=== PATIENT | male | born 1970 | race Caucasian/White ===

== ENCOUNTER 2018-07-07 23:04 | Emergency (ER) | payer OTHER ==
[2018-07-07 23:32] VITALS: BP 142/102; PULSE 89; RESP 20; TEMP 98.8
[2018-07-08] MEDS ORDERED: ACET/COD 300 MG/30 MG STARTER PACK 6 TAB BTL PO STA (00:01)
--- NOTE | 2018-07-08 00:04 | ED ---
Fall HPI - General Source: patient Mode of arrival: ambulatory <Lena Perkins - Last Filed: 07/08/18 02:35> <Myra Perez - Last Filed: 07/09/18 03:12> - General Chief Complaint: Fall Stated Complaint: Fall, L arm injury - History of Present Illness Initial Comments: 4-year-old male with past medical history of hypertension presenting today for chief complaint of fall and right wrist pain. Patient states last night around 1:00 AM he was outside when he slipped on ice, he denies any head injury, neck or back pain. He states he fell on his right side and extended his left wrist. Patient states he immediately noticed left wrist pain. When patient did not subside and patient had increased pain with range of motion of the left wrist he presented for evaluation for possible fracture. She admits to soft tissue swelling over the left wrist. Patient is right-hand dominant. Patient denies any numbness, tingling or loss of sensation. Patient denies any pallor of the extremity. Patient denies any previous left wrist injuries or drug ALLERGIES. Remainder of ROS negative, patient denies any recent fever, chills, shortness of breath, chest pain, back pain, abdominal pain, nausea or vomiting, numbness or tingling, dysuria or hematuria, constipation or diarrhea, headaches or visual changes, or any other complaints. (Lena Perkins) - Related Data Home Medications Medication Instructions Recorded Confirmed Losartan/Hydrochlorothiazide 1 tab PO DAILY 07/07/18 07/07/18 [Losartan-Hctz 100-12.5 mg Tab] amLODIPine [Norvasc] 10 mg PO DAILY 07/07/18 07/07/18 Allergies Allergy/AdvReac Type Severity Reaction Status Date / Time No Known Allergies Allergy Verified 07/07/18 23:32 Review of Systems ROS Other: All systems not noted in ROS Statement are negative. <Lena Perkins - Last Filed: 07/08/18 02:35> ROS Other: All systems not noted in ROS Statement are negative. <Myra Perez - Last Filed: 07/09/18 03:12> ROS Statement: Those systems with pertinent positive or pertinent negative responses have been documented in the HPI. Past Medical History Past Medical History: Hypertension History of Any Multi-Drug Resistant Organisms: None Reported Past Surgical History: Orthopedic Surgery Additional Past Surgical History / Comment(s): red knee and red ankle Past Psychological History: No Psychological Hx Reported Smoking Status: Current every day smoker Past Alcohol Use History: None Reported Past Drug Use History: None Reported <Lena Perkins L - Last Filed: 07/08/18 02:35> General Exam Limitations: no limitations <Lena Perkins L - Last Filed: 07/08/18 02:35> <Myra Perez P - Last Filed: 07/09/18 03:12> - General Exam Comments Initial Comments: General: The patient is awake and alert, in no distress, and does not appear acutely ill. Eye: +3 mm pupils are equal, round and reactive to light, extra-ocular movements are intact. No nystagmus. There is normal conjunctiva bilaterally. No signs of icterus. Ears, nose, mouth and throat: There are moist mucous membranes and no oral lesions. Cardiovascular: There is a regular rate and rhythm. No murmur, rub or gallop is appreciated. Respiratory: Lungs are clear to auscultation, respirations are non-labored, breath sounds are equal. No wheezes, stridor, rales, or rhonchi. Gastrointestinal: Soft, non-distended, non-tender abdomen without masses or organomegaly noted. There is no rebound or guarding present. No CVA tenderness. Bowel sounds are unremarkable. Musculoskeletal: Upon inspection of the wrist bilaterally, there is soft tissue swelling diffusely over the carpals of the left wrist. No abrasions or lacerations. Patient refuses to fully range at the left wrist secondary to pain. Patient is able to slightly flex and extend . Normal ROM, no tenderness at the elbows and shoulders bilaterally of the upper extremities equal and comparison patient has full range of motion of the digits of the hands equal bilaterally.. Strength 5/5 of unaffected joints of the upper extremities however patient refuses to fully strength test at the left wrist secondary to pain. Sensation intact both proximal distal to injury equal comparison with unaffected side. Radial pulses equal bilaterally 2+. Patient is able to make the okay fingers crossed and extend thumb slightly. Median, radial and ulnar nerves appear intact. Capillary refill less than 2 seconds. Compartments are soft and compressible Neurological: A&O x 3. CN II-XII intact, There are no obvious motor or sensory deficits. Coordination appears grossly intact. Speech is normal. Skin: Skin is warm and dry and no rashes or lesions are noted. Psychiatric: Cooperative, appropriate mood & affect, normal judgment. (Lena Perkins) Vital Signs 07/07/18 23:29 Temperature 98.8 F Pulse Rate 89 Respiratory 20 Rate Blood Pressure 142/102 O2 Sat by Pulse 100 Oximetry Medical Decision Making <Lena Perkins - Last Filed: 07/08/18 02:35> <Myra Perez - Last Filed: 07/09/18 03:12> - Medical Decision Making 48-year-old male with history of fall and left wrist pain. Patient neurovascularly intact. X-rays reviewed by myself as well as radiology revealed a distal radial fracture, this lucency is evident and prominent on imaging. There is no evidence concerning for displacement. Patient was placed in a thumb spica splint. Patient repeat neurovascular exam intact. Patient given starter pack for Tylenol 3 risks involved with medication were discussed at length, as well as appropriate administration. Patient denies any other areas of pain or injury. At this time I do feel patient is stable for discharge. Patient is discharged in stable condition appearing well. Patient was given orthopedic surgery follow-up for further evaluation and treatment. (Lena Perkins) I was available for consultation in the emergency department. The history and physical exam were done by the midlevel provider. I was consulted for this patient's care. I reviewed the case with the midlevel provider and based on their presentation of the patient, I agree with the assessment, medical decision making and plan of care as documented. (Myra Perez) Disposition Is patient prescribed a controlled substance at d/c from ED?: No Time of Disposition: 00:03 <Lena Perkins - Last Filed: 07/08/18 02:35> <Myra Perez - Last Filed: 07/09/18 03:12> Clinical Impression: Distal radius fracture, left Disposition: HOME SELF-CARE Condition: Good Instructions (If sedation given, give patient instructions): Wrist Fracture in Adults (ED) Additional Instructions: Please use medication as discussed, no drinking alcohol, driving, operating machinery or working under the influence of Tylenol #3. Please follow-up with orthopedic surgery in the next 1-2 days. Please return to emergency room if the symptoms increase or worsen or for any other concerns, as discussed. Referrals: Remi Cole, [Primary Care Provider] - 1-2 days Gerson Mota, [Medical Doctor] - 1-2 days
--- NOTE | 2018-07-08 00:09 | XR ---
EXAMINATION TYPE: XR wrist complete LT DATE OF EXAM: 07/08/2018 COMPARISON: NONE HISTORY: Pain after falling TECHNIQUE: 4 views FINDINGS: There is a lucent line injected through the radial styloid process and to the articular bakari face of the distal radius consistent with nondisplaced fracture. The carpal bones are intact. Scaphoi d appears intact. IMPRESSION: There is probably a nondisplaced intra-articular fracture radial styloid process.
--- NOTE | 2018-07-08 00:10 | XR ---
EXAMINATION TYPE: XR hand complete LT DATE OF EXAM: 07/08/2018 COMPARISON: NONE HISTORY: Pain TECHNIQUE: 3 views FINDINGS: The carpal bones are intact. Metacarpals are intact. I see no dislocation. There is lucent line projected through the distal radius consistent with radial styloid process nondisplaced intra-ar ticular fracture. IMPRESSION: There is probably radial styloid process fracture.
== END 2018-07-08 00:17 | disposition home or self-care (01) ==
LOC: EC 23:04
DX: S52.502A Unspecified fracture of the lower end of left radius, initial encounter for closed fracture (principal); I10 Essential (primary) hypertension; F17.200 Nicotine dependence, unspecified, uncomplicated; Z79.899 Other long term (current) drug therapy; W00.0XXA Fall on same level due to ice and snow, initial encounter
CPT/HCPCS: 29125; 99283